=== PATIENT | male | born 1960 | race African-American/Black ===

== ENCOUNTER 2019-11-06 11:30 | Inpatient (IN) | payer MEDICAID, OTHER ==
[2019-11-06 17:00] VITALS: BP 109/66
[2019-11-06] MEDS ORDERED: Magnesium Hydroxide (MOM) 30 mL UDC PO PRN (17:09)
[2019-11-06] MEDS: Acetaminophen 500 MG TAB PO PRN (18:37)
[2019-11-06] MEDS: Nicotine 14 mg/24 hr Tdm TD SCH (18:38)
[2019-11-06] MEDS: Maalox 30 mL Cup PO PRN (21:56)
[2019-11-07] MEDS: Multivitamin Tab PO SCH (09:06)
[2019-11-07] MEDS: Nicotine 14 mg/24 hr Tdm TD SCH (09:07)
[2019-11-07] MEDS: Acetaminophen 500 MG TAB PO PRN ×2 (09:07→15:11)
--- NOTE | 2019-11-07 13:18 | History & Physical ---
ADMIT DATE: 11/06/2019 CHIEF COMPLAINT: Suicidal ideations. HISTORY OF PRESENT ILLNESS: The patient is a 58-year-old male with diabetes, coronary artery disease, who is admitted with suicidal ideation. The patient denies any chest pain or shortness of breath. No nausea, vomiting, abdominal pain, diarrhea. PAST MEDICAL HISTORY: 1. Diabetes. 2. Hypertension. 3. CAD. MEDICATIONS: List reviewed. ALLERGIES: None. SOCIAL HISTORY: Tobacco negative. The patient has polysubstance abuse history. PHYSICAL EXAMINATION: VITAL SIGNS: Temperature is 98.4, pulse 81, respirations 22, blood pressure is 122/74, satting 95% on room air. HEENT: Normocephalic, atraumatic head exam. NECK: Supple. CARDIOVASCULAR: Regular rate and rhythm. LUNGS: Clear. ABDOMEN: Soft, nontender. EXTREMITIES: No edema, cyanosis or clubbing. CN grossly intact ASSESSMENT AND PLAN: 1. Coronary artery disease. 2. Diabetes. 3. Suicidal ideations. The patient will be continued on supportive care. We will get blood work done to rule out for COVID and go from there. JOB# [id number] [email or web address]
[2019-11-07 13:51] LABS: CHOLESTEROL 144 mg/dL (<200); LDL CHOLESTEROL 76 mg/dL (0-129); TRIGLYCERIDES 99 mg/dL (30-150)
--- NOTE | 2019-11-07 16:58 | Psychiatric Evaluation ---
DATE OF SERVICE: 11/06/2019 PSYCHIATRIC EVALUATION AND MENTAL STATUS EXAMINATION IDENTIFYING DATA: The patient is a 58-year-old -[place] male, currently homeless. Information obtained by directly interviewing the patient as well as reviewing the admission papers. JUSTIFICATION OF HOSPITALIZATION: The patient is admitted on 5149 as a danger to self and danger to others after he was medically cleared from the [facility] in [place]. HISTORY OF PRESENT ILLNESS: As per the information, the patient is reporting that he wanted to hurt the white racist land examiner and wants to walk in front of a truck and then end his life. The patient is not making much sense. The patient is endorsing that he has been hearing the voices and seeing things and is very paranoid. The patient is also endorsing that he has not been complying with the medications and has been self-medicating himself with alcohol and methamphetamine. The patient has been talking about bugs crawling underneath his skin and having hallucinations of demons trying to hurt him. The patient at this time is not able to contract for safety. Sleep and appetite prior to the hospitalization are reported to be poor. The patient is reported to have been on Risperdal, Zyprexa, Celexa, but he is going on and on, but is not able to give the details, but the patient was given the Risperdal at the [facility] and is reported to have helped him. PAST PSYCHIATRIC HISTORY: The patient is reporting that he was in the hospital like this before. MEDICAL HISTORY: Physical examination is requested by Dr. Bhardwaj. SUBSTANCE ABUSE HISTORY: As I mentioned earlier, the patient has been abusing methamphetamine and alcohol. SOCIAL HISTORY: The patient is currently homeless. LEGAL PROBLEMS: None at this time. STRENGTH AND ASSETS: The patient is motivated. MENTAL STATUS EXAMINATION: The patient is a 58-year-old, looking his stated age, superficially cooperative. Eye contact is poor. Mood is noted to be irritable. Affect is constricted. Speech is noted to be coherent and relevant. The patient is alert and oriented to time, place, person and situation. Attention span and concentration are noted to be poor at this time. The patient has paranoid delusions and is also having the visual as well as tactile hallucinations. The patient is homicidal at this time. The patient wants to hurt the land examiner. The patient is also presenting with suicidal ideation. He wants to walk in front of the truck. The patient is not able to contract for safety at this time. The patient is of average intelligence and is able to provide the information accurately. DIAGNOSES: AXIS I: 1. Unspecified psychosis. 2. Methamphetamine abuse. 3. Alcohol abuse. AXIS II: None. AXIS III: As per Dr. Bhardwaj. IMMEDIATE TREATMENT PLAN: The patient is going to be started on the Risperdal 2 mg b.i.d. and the patient is going to be closely monitored. Once stabilized, the patient is going to be discharged to [facility] to be followed up on an outpatient basis. JOB# [id number]
[2019-11-08 05:07] LABS: A1C 6.3 % (4.8-5.6)
[2019-11-08] MEDS: Nicotine 14 mg/24 hr Tdm TD SCH (08:31)
[2019-11-08] MEDS: Acetaminophen 500 MG TAB PO PRN ×2 (08:32→16:10)
[2019-11-08] MEDS: Multivitamin Tab PO SCH (08:32)
--- NOTE | 2019-11-08 08:48 | Progress Notes ---
DATE: 11/08/2019 PSYCHIATRIC PROGRESS NOTE SUBJECTIVE: Staff was spoken to. The patient is interviewed. Mood is noted to be irritable. Affect is constricted. The patient is isolative and withdrawn. Insight and judgment are at this time are noted to be still impaired. Impulse control is noted to be limited. The patient has been still insisting on killing himself. The patient is still responding to internal stimuli. The patient continues to be very paranoid. No side effects to the medications are noted at this time. The patient is currently on low dose of the risperidone and Benadryl and has been able to tolerate the medication. ASSESSMENT: The patient is still psychotic and suicidal and is not ready to be discharged to a lower level of care. JOB# [id number]
[2019-11-08] MEDS: Maalox 30 mL Cup PO PRN (09:32)
[2019-11-08 14:13] LABS: HEMOGLOBIN 13.4 g/dL (14.0-18.0); RED BLOOD COUNT 4.67 MIL/uL (4.2-6.2); WHITE BLOOD COUNT 7.4 K/uL (4.8-10.8)
[2019-11-08 14:14] LABS: % NEUTROPHILS 54.8 % (40-70); HEMATOCRIT 40.2 % (36-54); MEAN CORPUSCULAR HEMOGLOBIN 29 pg (27-31); MEAN CORPUSCULAR HGB CONC 33 % (32-36); MEAN CORPUSCULAR VOLUME 86 fL (79.0-98.0); PLATELET COUNT 431 K/uL (130-430); RED CELL DISTRIBUTION WIDTH 14.1 % (9.0-15.0)
[2019-11-08 14:15] LABS: BASOPHILS # (AUTO) 0.1 K/uL (0.0-0.2); BASOPHILS % (AUTO) 1.2 % (0.0-2.0); EOSINOPHILS # (AUTO) 0.5 K/uL (0.0-0.4); EOSINOPHILS % (AUTO) 6.1 % (0-4); LYMPHOCYTES # (AUTO) 2.4 K/uL (1.0-5.5); LYMPHOCYTES % (AUTO) 31.7 % (20.5-51.5); MONOCYTES # (AUTO) 0.5 K/uL (0.0-1.0); MONOCYTES % (AUTO) 6.2 % (1.7-9.3); NEUTROPHILS # (AUTO) 4.1 K/uL (1.8-7.7)
[2019-11-08 14:57] LABS: POTASSIUM SERUM 4.2 mmol/L (3.5-5.1)
[2019-11-08 14:58] LABS: BILIRUBIN,TOTAL 0.1 mg/dL (0.0-1.0); CALCIUM SERUM 8.8 mg/dL (8.4-10.2); CREATININE - SERUM 0.92 mg/dL (0.70-1.30); TOTAL PROTEIN,SERUM 6.8 g/dL (6.4-8.3)
[2019-11-09] MEDS: Nicotine 14 mg/24 hr Tdm TD SCH (09:05)
[2019-11-09] MEDS: Multivitamin Tab PO SCH (09:06)
[2019-11-09] MEDS: Acetaminophen 500 MG TAB PO PRN (14:19)
--- NOTE | 2019-11-10 01:53 | Progress Notes ---
DATE: 11/09/2019 SUBJECTIVE: Staff was spoken to. The patient is interviewed. Mood is noted to be depressed. Affect is constricted. The patient is isolative and withdrawn. The patient is still insisting on killing himself. The patient continues to be very paranoid. No side effects to the medications are noted at this time. Sleep is noted to be improving. Appetite is noted to be fair. ASSESSMENT: The patient is still psychotic and suicidal. PLAN: Plan is to continue the patient with the current medications and follow. JOB# [id number]
[2019-11-10] MEDS: Nicotine 14 mg/24 hr Tdm TD SCH (08:20)
[2019-11-10] MEDS: Acetaminophen 500 MG TAB PO PRN ×2 (08:20→14:41)
[2019-11-10] MEDS: Multivitamin Tab PO SCH (08:21)
[2019-11-10] MEDS: Maalox 30 mL Cup PO PRN (21:04)
--- NOTE | 2019-11-11 03:01 | Progress Notes ---
DATE: 11/10/2019 PSYCHIATRIC PROGRESS NOTE SUBJECTIVE: Staff was spoken to. The patient is interviewed. Mood is noted to be anxious. The patient is isolative and withdrawn. The patient's coping skills are noted to be still poor. Insight and judgment are noted to be limited. He continues to have paranoid delusions, but denies any command hallucinations. The patient is currently on risperidone 2 mg b.i.d. and has been able to tolerate the medications. No side effects to the medications are noted at this time. ASSESSMENT: The patient is still paranoid. PLAN: To continue the patient with the supportive therapy. I encouraged the patient to verbalize the concerns rather than to act out. JOB# [id number]
[2019-11-11] MEDS: Nicotine 14 mg/24 hr Tdm TD SCH (08:36)
[2019-11-11] MEDS: Acetaminophen 500 MG TAB PO PRN ×2 (08:37→15:49)
[2019-11-11] MEDS: Multivitamin Tab PO SCH (08:37)
[2019-11-11] MEDS: Maalox 30 mL Cup PO PRN (17:07)
--- NOTE | 2019-11-12 00:47 | Progress Notes ---
DATE: 11/11/2019 PSYCHIATRIC PROGRESS NOTE SUBJECTIVE: Staff was spoken to. The patient is interviewed. Mood is noted to be irritable. Affect is constricted. Insight and judgment are noted to be still impaired. Continues to be paranoid, isolative and withdrawn, participation in the groups seems to be very low. The patient is still not able to contract for safety. The patient is encouraged to participate in groups and verbalize the concerns rather than being locked up in his room. The patient is currently on Risperdal and will be continuing the medications and then follow the patient with the supportive therapy. JOB# [id number]
[2019-11-12] MEDS: Maalox 30 mL Cup PO PRN ×2 (03:58→21:10)
[2019-11-12] MEDS: Nicotine 14 mg/24 hr Tdm TD SCH (08:25)
[2019-11-12] MEDS: Multivitamin Tab PO SCH (08:26)
--- NOTE | 2019-11-12 12:47 | Progress Notes ---
DATE: 11/12/2019 SUBJECTIVE: Staff was spoken to. The patient is interviewed. Mood is noted to be anxious. The patient's insight and judgment are noted to be improving. Impulse control seems to be fair. No side effects to the medications are noted. The patient is currently on risperidone and Benadryl and has been able to tolerate the medications. The patient is willing to comply with the medication. The patient's psychosis is resolving. Sleep and appetite are noted to be fair. No side effects to the medications are noted. ASSESSMENT: The patient is stabilizing. PLAN: To discharge the patient, whenever the placement is available. JOB# [id number]
--- NOTE | 2019-11-12 13:33 | Internal Medicine Prog Note ---
Internal Medicine Subjective - Subjective Service Date: 11/12/19 Patient seen and examined:: without staff Patient is:: awake (complaining of lower back pain) Internal Medicine Objective - Results Result Diagrams: 11/08/19 12:45 11/08/19 12:45 Recent Labs: Laboratory Last Values WBC 7.4 K/uL (4.8-10.8) 11/08/19 12:45 RBC 4.67 MIL/uL (4.2-6.2) 11/08/19 12:45 Hgb 13.4 g/dL (14.0-18.0) L 11/08/19 12:45 Hct 40.2 % (36-54) 11/08/19 12:45 MCV 86 fL (79.0-98.0) 11/08/19 12:45 MCH 29 pg (27-31) 11/08/19 12:45 MCHC 33 % (32-36) 11/08/19 12:45 RDW 14.1 % (9.0-15.0) 11/08/19 12:45 Plt Count 431 K/uL (130-430) H 11/08/19 12:45 MPV 6.5 fl (7.4-10.4) L 11/08/19 12:45 Neut % (Auto) 54.8 % (40-70) 11/08/19 12:45 Lymph % (Auto) 31.7 % (20.5-51.5) 11/08/19 12:45 [place] % (Auto) 6.2 % (1.7-9.3) 11/08/19 12:45 Eos % (Auto) 6.1 % (0-4) H 11/08/19 12:45 Baso % (Auto) 1.2 % (0.0-2.0) 11/08/19 12:45 Neut # (Auto) 4.1 K/uL (1.8-7.7) 11/08/19 12:45 Lymph # (Auto) 2.4 K/uL (1.0-5.5) 11/08/19 12:45 [place] # (Auto) 0.5 K/uL (0.0-1.0) 11/08/19 12:45 Eos # (Auto) 0.5 K/uL (0.0-0.4) 11/08/19 12:45 Baso # (Auto) 0.1 K/uL (0.0-0.2) 11/08/19 12:45 Sodium 129 mmol/L (136-145) L 11/08/19 12:45 Potassium 4.2 mmol/L (3.5-5.1) 11/08/19 12:45 Chloride 97 mmol/L (98-107) L 11/08/19 12:45 Carbon Dioxide 22 mmol/L (23-29) L 11/08/19 12:45 Anion Gap 14 (5-15) 11/08/19 12:45 BUN 14 mg/dL (8-21) 11/08/19 12:45 Creatinine 0.92 mg/dL (0.70-1.30) 11/08/19 12:45 Glucose 157 mg/dL (70-99) H 11/08/19 12:45 Hemoglobin A1c 6.3 % (4.8-5.6) H 11/07/19 09:15 Calcium 8.8 mg/dL (8.4-10.2) 11/08/19 12:45 Total Bilirubin 0.1 mg/dL (0.0-1.0) 11/08/19 12:45 AST 21 U/L (10-37) 11/08/19 12:45 ALT 33 U/L (12-78) 11/08/19 12:45 Alkaline Phosphatase 89 U/L (46-116) 11/08/19 12:45 Total Protein 6.8 g/dL (6.4-8.3) 11/08/19 12:45 Albumin 3.3 g/dL (3.4-5.0) L 11/08/19 12:45 Triglycerides 99 mg/dL (30-150) 11/07/19 09:15 Cholesterol 144 mg/dL (<200) 11/07/19 09:15 LDL Cholesterol 76 mg/dL (0-129) 11/07/19 09:15 HDL Cholesterol 57 mg/dL (>45) 11/07/19 09:15 TSH 0.81 uIU/ml (0.358-3.740) 11/08/19 12:45 Coronavirus (PCR) NOT DETECTED (NOT DETECTD) 11/07/19 09:25 - Physical Exam Vitals and I&O: Vital Signs Temp 98.2 F 11/12/19 05:44 Pulse 82 11/12/19 05:44 Resp 20 11/12/19 07:53 BP 106/71 11/12/19 05:44 Pulse Ox 95 11/12/19 05:44 Intake & Output 11/11/19 11/12/19 11/12/19 18:59 06:59 18:59 Intake Total 1250 240 Balance 1250 240 Intake: Oral 1250 240 Other: # Voids 4 3 # Bowel Movements 1 0 Active Medications: Current Medications Acetaminophen (Tylenol) 650 mg PO Q4H PRN PRN Reason: Pain (Mild 1-3) Stop: 01/05/20 17:07 Acetaminophen (Tylenol Extra Strength) 1,000 mg PO Q6H PRN PRN Reason: Pain (Moderate 4-6) Stop: 01/05/20 17:08 Last Admin: 11/11/19 15:49 Dose: 1,000 mg Al Hydrox/Mg Hydrox/Simethicone (Maalox) 30 ml PO Q4HR PRN PRN Reason: GI DISTRESS Stop: 01/05/20 17:08 Last Admin: 11/12/19 03:58 Dose: 30 ml Diphenhydramine HCl (Benadryl) 25 mg PO BID REINIER Stop: 01/06/20 08:59 Last Admin: 11/12/19 08:26 Dose: 25 mg Ibuprofen (Motrin) 400 mg PO Q4H PRN PRN Reason: Pain (Severe 7-10) Stop: 01/05/20 17:08 Last Admin: 11/12/19 08:29 Dose: 400 mg Lorazepam (Ativan) 0.5 mg PO Q4HR PRN; Protocol PRN Reason: Anxiety Stop: 12/06/19 17:08 Last Admin: 11/10/19 13:38 Dose: 0.5 mg Multivitamins/Vitamin C (Theragran) 1 tab PO DAILY REINIER Stop: 01/06/20 08:59 Last Admin: 11/12/19 08:26 Dose: 1 tab Nicotine (Nicotine Transdermal System) 14 mg TD DAILY REINIER Stop: 01/05/20 17:14 Last Admin: 11/12/19 08:25 Dose: 14 mg Risperidone (Risperdal) 2 mg PO BID REINIER; Protocol Stop: 01/06/20 08:59 Last Admin: 11/12/19 08:26 Dose: 2 mg Zolpidem Tartrate (Ambien) 5 mg PO HS PRN PRN Reason: Insomnia Stop: 01/05/20 17:08 Last Admin: 11/11/19 20:22 Dose: 5 mg General: weak HEENT: NC/AT, PERRLA Neck: Supple, No JVD Lungs: CTAB Cardiovascular: RRR, Normal S1, Normal S2 Abdomen: soft Extremities: clear Internal Medicine Assmt/Plan - Assessment Assessment: 1. Chronic lower back pain - Plan Plan: start tylenol 3 q 6 hours prn patient says he has been taking these medically for many years Nutritional Asmnt/Malnutr-PDOC - Dietary Evaluation Malnutrition Findings (Please click <Entered> for more info): Nutritional Asmnt/Malnutrition Start: 11/08/19 13: 39 Text: Status: Complete Freq: Protocol: Document 11/08/19 13:40 DARVIN (Rec: 11/08/19 13:43 DARVIN [id number] [id number]) Nutritional Asmnt/Malnutrition Patient General Information Nutritional Screening Moderate Risk Diagnosis Cardiac Pertinent Medical Hx/Surgical Hx DM, HTN, CAD Subjective Information Pt is a 58-year-old male admitted on 11/05 d/t suicidal ideations. Pt is eating an estimated 100% of meals since admit date Per Meal/Nutrition Activity Record. Dietary is currently providing an estimated 1900 kcals and 90 gm Pro to meet 96% kcal and 100% Pro needs. Visited pt, collected food preferences and explained diet Rx. Recommend adding NCS to current Diet Rx d/t A1c 6.3%, noted PMH DM. Anthropometrics HT: 510 WT: 174 LB (79.09 kg) BMI: 24.98 (normal) GI/ Skin Integrity GI: Flat Soft, GERD BM: 11/06 x1 I/O: 1000/Not Noted Skin: WNL, Intact Jonah: 19 Diet Order: Cardiac Estimated Energy Needs: ( Geriatric, CBW) 8597-0508 kcals (25-30 kcals/ kg) 80-95g Pro (1.0-1.2 g/kg) 4705-3295 ml (25-30 ml/kg) Current Diet Order/ Nutrition Support Cardiac Patient / S.O Can Pertinent Medications Maalox (PRN), MOM (PRN), Theragran Pertinent Labs 11/06: A1c 6.3% 10/31: Glucose 109, Na 128, BUN /Cr 16/1.14, Hgb/Hct 12.7/38.6 Nutritional Hx/Data Height 1.78 m Height (Calculated Centimeters) 177.8 Current Weight (lbs) 78.925 kg Weight (Calculated Kilograms) 78.9 Weight (Calculated Grams) 35068.1 [place] Body Weight 166 LB (75.45 kg) % [place] Body Weight 105 Body Mass Index (BMI) 25.0 Weight Status Approriate GI Symptoms Last BM 11/06 x1 Skin Integrity/Comment: Skin: WNL, Intact Jonah: 19 Current %PO Good (75-100%) Estimated Nutritional Goals BEE in Kcals: Using Current wt Calories/Kcals/Kg 25-30 Kcals Calculated 8822-3033 Protein: Using Current wt Protein g/k.0-1.2 Protein Calculated 80-95 Fluid: ml 2844-1913 ml (25-30 ml/kg) Nutritional Problem 1. Problem Problem Impaired nutrient utilization Etiology r/t endocrine dysfunction Signs/Symptoms: aeb labs (11/06) A1c 6.3%. Malnutrition Related to Morbid Obesity Malnutrition related to morbid obesity No Intervention/Recommendation Comments Recommend adding NCS to current Diet Rx. Expected Outcomes/Goals Expected Outcomes/Goals 1.PO intake to continue to meet >75% of estimated nutritional needs. 2.Monitor PO intake, wt, nutrition related labs, and skin integrity. 3.F/U as low risk in 7-10 days , 29/06-11/17.
[2019-11-12] MEDS: Acetaminophen 500 MG TAB PO PRN (14:17)
[2019-11-12] MEDS: APAP/Codeine 300 mg/30 mg Tab PO PRN (21:10)
[2019-11-13] MEDS: Acetaminophen 500 MG TAB PO PRN (03:29)
[2019-11-13] MEDS: Maalox 30 mL Cup PO PRN ×2 (03:30→16:43)
[2019-11-13] MEDS: Multivitamin Tab PO SCH (10:00)
[2019-11-13] MEDS: Nicotine 14 mg/24 hr Tdm TD SCH (10:25)
[2019-11-13] MEDS: APAP/Codeine 300 mg/30 mg Tab PO PRN ×2 (10:55→17:50)
--- NOTE | 2019-11-13 15:11 | Progress Notes ---
DATE: 11/13/2019 SUBJECTIVE: Staff was spoken to. The patient is interviewed. Mood is noted to be anxious. The patient is stating that he is going to be seen by someone hopefully, they are going to be accepting him for placement. The patient has paranoia, but denies any command hallucinations. Insight and judgment at this time are noted to be improving. Impulse control seems to be fair. No side effects to the medications are noted. ASSESSMENT: The patient's psychosis is resolving. The patient is awaiting placement. PLAN: To continue the patient with the supportive therapy and followup. JOB# [id number]
[2019-11-14] MEDS: Acetaminophen 500 MG TAB PO PRN (03:33)
[2019-11-14] MEDS: APAP/Codeine 300 mg/30 mg Tab PO PRN (03:42)
[2019-11-14] MEDS: Multivitamin Tab PO SCH (08:52)
[2019-11-14] MEDS: Nicotine 14 mg/24 hr Tdm TD SCH (08:53)
[2019-11-14] MEDS ORDERED: APAP/Codeine 300 mg/30 mg Tab PO PRN (09:04)
--- NOTE | 2019-11-14 09:37 | Progress Notes ---
DATE: 11/14/2019 SUBJECTIVE: Staff was spoken to. The patient is interviewed. Mood is noted to be anxious. Insight and judgment at this time are noted to be improving. Impulse control seems to be fair. No side effects to the medications are noted. The patient is willing to comply with the treatment on an outpatient basis. However, the patient is fixated on too much of the Tylenol No. 3. ASSESSMENT: The patient is stabilizing. PLAN: To discharge the patient today for followup on outpatient basis. JOB# [id number]
[2019-11-14] MEDS: Maalox 30 mL Cup PO PRN (10:25)
--- NOTE | 2019-11-23 19:57 | Discharge Summary ---
DATE OF DISCHARGE: 11/14/2019 PSYCHIATRIC DISCHARGE SUMMARY IDENTIFYING DATA: The patient is a 58-year-old -[place] male, currently homeless. JUSTIFICATION FOR HOSPITALIZATION: The patient is admitted on a 5150 as a danger to self and danger to others after he was medically cleared from the [facility] in [place]. DIAGNOSES AT THE TIME OF ADMISSION: AXIS I: A. Unspecified psychosis. B. Methamphetamine abuse. C. Alcohol abuse AXIS II: None. AXIS III: As per Dr. Bhardwaj. HISTORY OF PRESENT ILLNESS: Please refer to the 11/07/2019 dictation done by me. HOSPITAL COURSE AND RESPONSE TO TREATMENT: The patient has been observed on the inpatient unit, provided with supportive psychotherapy. The patient has been closely monitored. I encouraged him to verbalize the concerns rather than to act out. Blood work done at the hospitalization has been reviewed by Dr. Bhardwaj. The patient has been placed on Risperdal and that was given up to 2 mg twice a day and the patient has been encouraged to verbalize the concerns rather than to act out. The patient was stabilizing and the patient was finally discharged on 11/14/2019 with recommendation that he is going to be seeking treatment on outpatient basis. MENTAL STATUS EXAMINATION AT THE TIME OF DISCHARGE: The patient's mood is noted to be anxious. Affect is appropriate. Not suicidal or homicidal. Insight and judgment are noted to be fair. Impulse control is also noted to be fair. No side effects to the medications are noted. The patient is willing to seek treatment on outpatient basis. The patient is not presenting with any side effects from the medications. DIAGNOSES AT THE TIME OF DISCHARGE: AXIS I: A. Unspecified psychosis. B. Methamphetamine abuse. AXIS II: None. AXIS III: None. AFTERCARE PLAN: The patient is discharged to [facility] [address] for followup on outpatient basis. JOB# [id number]
== END 2019-11-14 12:55 | disposition short-term general hospital (02) | DRG 885 ==
LOC: GERO 14:45
PROVIDERS: ADMIT Psychiatry & Neurology Psychiatry; ATTEND Psychiatry & Neurology Psychiatry
DX: F29 Unspecified psychosis not due to a substance or known physiological condition (principal); R45.851 Suicidal ideations; E87.1 Hypo-osmolality and hyponatremia; E44.1 Mild protein-calorie malnutrition; F10.10 Alcohol abuse, uncomplicated; I25.10 Atherosclerotic heart disease of native coronary artery without angina pectoris; Z20.828 Contact with and (suspected) exposure to other viral communicable diseases; E11.9 Type 2 diabetes mellitus without complications; I10 Essential (primary) hypertension; G89.29 Other chronic pain; M54.5 Low back pain; Z59.0 Homelessness; Z68.25 Body mass index [BMI] 25.0-25.9, adult
CPT/HCPCS: 36415-UA; 80053-TC; 80061-TC; 83036-90; 84443-TC; 85025-TC; 90899; G0410; U0003-CS; Z7610